=== PATIENT | female | born 1965 | race Caucasian/White ===

== ENCOUNTER 2022-12-13 19:52 | Emergency (ER) | payer OTHER ==
[~2022-12-13] VITALS: Ht 162.6 cm; Wt 113.4 kg
[~2022-12-13 19:52] MED LIST: BUSPIRONE HCL5 MG PO; GABAPENTIN300 MG PO; OMEPRAZOLE MAGN20 MG PO; Z.0.CITALOPRAM HBR20 PO; Z.0.PRAVASTATIN SOD2 PO; Z.0.XANAX0.25 MG PO; [UNRECOGNIZED DRUG - OTHER] PO; [UNRECOGNIZED DRUG - OTHER] PO
[2022-12-13] MEDS ORDERED: ONDANSETRON HCL INJ 2MG/ML 2ML 2 MG/ML VIAL IV STA (20:26)
[2022-12-13] MEDS ORDERED: BACTRIM DS TAB1 EACH PO (21:01)
[2022-12-13] MEDS ORDERED: ONDANSETRON HCL INJ 2MG/ML 2ML 2 MG/ML VIAL ONE (21:01)
[2022-12-13] MEDS ORDERED: PYRIDIUM100 MG PO (21:02)
== END 2022-12-13 21:09 | disposition home or self-care (01) ==
LOC: FSED 20:02
DX: N39.0 Urinary tract infection, site not specified (principal); M54.9 Dorsalgia, unspecified; I10 Essential (primary) hypertension; E78.5 Hyperlipidemia, unspecified; E11.9 Type 2 diabetes mellitus without complications; F41.9 Anxiety disorder, unspecified; F32.A Depression, unspecified; Z79.899 Other long term (current) drug therapy
CPT/HCPCS: 81003; 99283; J2405